=== PATIENT | male | born 1950 | race Caucasian/White ===

== ENCOUNTER → 2021-03-20 | Outpatient (REF) | payer MEDICARE, OTHER | LOC: M LAB REF 17:41 | PROVIDERS: ATTEND Physician Assistant | DX: D22.61 Melanocytic nevi of right upper limb, including shoulder (principal); D22.5 Melanocytic nevi of trunk | CPT/HCPCS: 11102; 17000; 17003; 88305; G0463 ==

== ENCOUNTER → 2021-10-26 | Outpatient (REF) | payer MEDICARE, BC, OTHER | LOC: M SFHCDERM 18:42 | PROVIDERS: ATTEND Nurse Practitioner Family | DX: D22.5 Melanocytic nevi of trunk (principal) ==

== ENCOUNTER → 2022-04-11 | Outpatient (REF) | payer MEDICARE, BC, OTHER | LOC: M SFHCDERM 16:37 | PROVIDERS: ATTEND Physician Assistant | DX: D22.5 Melanocytic nevi of trunk (principal) ==